=== PATIENT | female | born 1950 | race Caucasian/White ===

== ENCOUNTER 2017-12-29 14:48 | Emergency (ER) | payer BC ==
--- NOTE | 2017-12-29 15:51 | RAD REPORT ---
EXAM DESCRIPTION: US - Abdomen Exam Limited - 12/29/2017 3:46 pm CLINICAL HISTORY: Abdominal pain. COMPARISON: None. FINDINGS: The gallbladder wall is not thickened. A gallstone is not seen. The biliary tree is normal caliber. IMPRESSION: Unremarkable gallbladder ultrasound.
[2017-12-29 16:17] LABS: Absolute Lymphocytes (CBC) 0.8 K/uL (0.7-4.9); Absolute Monocytes 0.3 K/uL (0.1-1.3); Absolute Neutrophil 3.8 K/uL (1.8-8.0); Basophils % 0.4 % (0-1.3); Eosinophils % 0.4 % (0-4.4); Hematocrit 41.6 % (36.0-45.0); Lymphocytes % 15.6 % (15.3-44.8); MCH 30.2 pg (27.0-35.0); MCV 90.1 fL (80-100); MPV 10.9 fL (7.6-11.3); Monocytes % 6.8 % (3.3-12.3); RBC Red Blood Cell Count 4.61 M/uL (3.86-4.86)
[2017-12-29 16:32] LABS: Albumin 4.3 g/dL (3.4-5.0); Bilirubin Direct 0.2 mg/dL (0-0.2); Bilirubin Total 1.1 mg/dL (0.2-1.0); Potassium 4.9 mmol/L (3.5-5.1); Protein, Total 7.4 g/dL (6.4-8.2)
--- NOTE | 2017-12-29 17:01 | EDPHYS ---
Physician Documentation [facility] Name: Natalie Sales Age: 67 yrs Sex: Female : 1950 Arrival Date: 12/29/2017 Time: 14:51 Bed 28 Private MD: Lionel Bennett ED Physician Jama Hanson HPI: 12/29 15:46 This 67 yrs old Female presents to ER via Ambulatory with complaints of kb Abdominal Pain, Flank Pain. 15:46 The patient presents with abdominal pain in the upper abdomen. Onset: The kb symptoms/episode began/occurred this morning, at 09:00. The symptoms do not radiate. Associated signs and symptoms: none. The symptoms are described as achy. The symptoms are described as intermittent. Modifying factors: The symptoms are alleviated by nothing, the symptoms are aggravated by food. Severity of pain: At its worst the pain was moderate in the emergency department the pain has resolved. The patient has not experienced similar symptoms in the past. The patient has been recently seen by a physician:. Pt states she ate oatmeal this morning and started having pain to RUQ that moved to entire upper abd. States pain comes in waves, resolved at this time. Recently diagnosed with cancer in liver and small intestine. . Historical: - Allergies: 15:10 PENICILLINS; mg2 - Home Meds: 15:10 irbesartan oral oral [Active]; mg2 - PMHx: 15:10 Diverticulitis; Hypertension; mg2 - PSHx: 15:10 Hysterectomy; mg2 - Immunization history:: Flu vaccine is not up to date. - Social history:: Smoking status: Patient/guardian denies using tobacco, Patient/guardian denies using alcohol, street drugs, IV drugs. - Ebola Screening: : No symptoms or risks identified at this time. ROS: 15:46 Constitutional: Negative for fever, chills, and weight loss, ENT: Negative for injury, kb pain, and discharge, Neck: Negative for injury, pain, and swelling, Cardiovascular: Negative for chest pain, palpitations, and edema, Respiratory: Negative for shortness of breath, cough, wheezing, and pleuritic chest pain, Back: Negative for injury and pain, : Negative for injury, bleeding, discharge, and swelling, MS/Extremity: Negative for injury and deformity, Skin: Negative for injury, rash, and discoloration, Neuro: Negative for headache, weakness, numbness, tingling, and seizure. 15:46 Abdomen/GI: Positive for abdominal pain, Negative for nausea, vomiting, and diarrhea, constipation, abdominal cramps, abdominal distension, anorexia. Exam: 15:46 Constitutional: This is a well developed, well nourished patient who is awake, alert, kb and in no acute distress. Head/Face: Normocephalic, atraumatic. Chest/axilla: Normal chest wall appearance and motion. Nontender with no deformity. No lesions are appreciated. Cardiovascular: Regular rate and rhythm with a normal S1 and S2. No gallops, murmurs, or rubs. Normal PMI, no JVD. No pulse deficits. Respiratory: Lungs have equal breath sounds bilaterally, clear to auscultation and percussion. No rales, rhonchi or wheezes noted. No increased work of breathing, no retractions or nasal flaring. Abdomen/GI: Soft, non-tender, with normal bowel sounds. No distension or tympany. No guarding or rebound. No evidence of tenderness throughout. Skin: Warm, dry with normal turgor. Normal color with no rashes, no lesions, and no evidence of cellulitis. MS/ Extremity: Pulses equal, no cyanosis. Neurovascular intact. Full, normal range of motion. Neuro: Awake and alert, GCS 15, oriented to person, place, time, and situation. Cranial nerves II-XII grossly intact. Motor strength 5/5 in all extremities. Sensory grossly intact. Cerebellar exam normal. Normal gait. Vital Signs: 15:11 BP 154 / 76; Pulse 60; Resp 18; Temp 98.7(O); Pulse Ox 98% on R/A; Weight 72.57 kg; mg2 Height 5 ft. 8 in. (172.72 cm); Pain 8/10; 16:25 BP 141 / 69; Pulse 61; Resp 18; Pulse Ox 100% ; mg2 15:11 Body Mass Index 24.33 (72.57 kg, 172.72 cm) mg2 MDM: 15:03 Patient medically screened. kb 15:46 Data reviewed: vital signs, nurses notes. Data interpreted: Pulse oximetry: on room air kb is 98 %. Interpretation: normal. 16:58 Counseling: I had a detailed discussion with the patient and/or guardian regarding: the kb historical points, exam findings, and any diagnostic results supporting the discharge/admit diagnosis, lab results, radiology results, the need for outpatient follow up, a family practitioner, a gamemaster, to return to the emergency department if symptoms worsen or persist or if there are any questions or concerns that arise at home. 16:58 ED course: Offered CT scan to further investigate abdominal pain. Pt does not want to kb have CT done at this time. Educated to return for worsening symptoms. Verbal understanding received. Also educated on bland diet and follow up with GI.. 12/29 15:24 Order name: Basic Metabolic Panel 12/29 15:24 Order name: CBC with Diff kb 12/29 15:24 Order name: Hepatic Function 12/29 15:24 Order name: Lipase 12/29 15:25 Order name: Basic Metabolic Panel; Complete Time: 16:32 EDMS 12/29 15:25 Order name: CBC with Automated Diff; Complete Time: 16:18 EDMS 12/29 15:24 Order name: IV Saline Lock; Complete Time: 15:57 kb 12/29 15:24 Order name: Labs collected and sent; Complete Time: 15:57 kb 12/29 15:24 Order name: Urine Dipstick-Ancillary (obtain specimen); Complete Time: 16:10 kb 12/29 15:24 Order name: US Abdomen Limited; Complete Time: 15:55 kb 12/29 15:25 Order name: Liver (Hepatic) Function; Complete Time: 16:32 EDMS 12/29 15:25 Order name: Lipase; Complete Time: 16:32 EDMS Administered Medications: 17:15 Drug: ProTONIX 40 mg Route: IVP; Site: left antecubital; mg2 17:15 Follow up: Response: No adverse reaction; Medication administered at discharge. mg2 Disposition: 12/30 07:04 Co-signature as Attending Physician, Jama Hanson MD I agree with the assessment and chanelle plan of care. Disposition: 12/29/17 17:01 Discharged to Home. Impression: Upper abdominal pain, unspecified. - Condition is Stable. - Discharge Instructions: Gastroesophageal Reflux Disease, Adult, Abdominal Pain, Adult, [id number]. - Prescriptions for Bentyl 20 mg Oral Tablet - take 1 tablet by ORAL route every 6 hours As needed; 20 tablet. Zofran 4 mg Oral Tablet - take 1 tablet by ORAL route every 6 hours As needed; 20 tablet. - Medication Reconciliation Form, Thank You Letter, Antibiotic Education, Prescription Opioid Use form. - Follow up: Emergency Department; When: As needed; Reason: Worsening of condition. Follow up: Private Physician; When: 2 - 3 days; Reason: Recheck today's complaints, Continuance of care, Re-evaluation by your physician. Signatures: Dispatcher [employer] EDIA Esperanza Treviño, MAURICE-C PHOTOGRAPHIC REPRODUCTION TECHNICIAN-Jama Hansen MD MD cha Gardose, Michele, RN RN mg2 Corrections: (The following items were deleted from the chart) 12/29 17:23 17:01 12/29/2017 17:01 Discharged to Home. Impression: Upper abdominal pain, mg2 unspecified. Condition is Stable. Forms are Medication Reconciliation Form, Thank You Letter, Antibiotic Education, Prescription Opioid Use. Follow up: Emergency Department; When: As needed; Reason: Worsening of condition. Follow up: Private Physician; When: 2 - 3 days; Reason: Recheck today's complaints, Continuance of care, Re-evaluation by your physician. kb
--- NOTE | 2017-12-29 17:01 | ER ---
Nurse's Notes [facility] Name: Natalie Sales Age: 67 yrs Sex: Female : 1950 Arrival Date: 12/29/2017 Time: 14:51 Bed 28 Private MD: Lionel Bennett Diagnosis: Upper abdominal pain, unspecified Presentation: 12/29 15:07 Presenting complaint: Patient states: she has right upper quadrant pain radiating to mg2 the center after eating oatmeal this morning.she is also nauseous but denies vomiting. She had her first sandostatin injection last Thursday. She has Liver Ca. Transition of care: patient was not received from another setting of care. Onset of symptoms was December 29, 2017. Risk Assessment: Do you want to hurt yourself or someone else? Patient reports no desire to harm self or others. Initial Sepsis Screen: Does the patient meet any 2 criteria? No. Patient's initial sepsis screen is negative. Does the patient have a suspected source of infection? No. Patient's initial sepsis screen is negative. Care prior to arrival: None. 15:07 Method Of Arrival: Ambulatory mg2 15:07 Acuity: EFRAIN 3 mg2 Historical: - Allergies: 15:10 PENICILLINS; mg2 - Home Meds: 15:10 irbesartan oral oral [Active]; mg2 - PMHx: 15:10 Diverticulitis; Hypertension; mg2 - PSHx: 15:10 Hysterectomy; mg2 - Immunization history:: Flu vaccine is not up to date. - Social history:: Smoking status: Patient/guardian denies using tobacco, Patient/guardian denies using alcohol, street drugs, IV drugs. - Ebola Screening: : No symptoms or risks identified at this time. Screenin:58 Abuse screen: Denies threats or abuse. Denies injuries from another. Nutritional mg2 screening: No deficits noted. Tuberculosis screening: No symptoms or risk factors identified. Fall Risk IV access (20 points). Assessment: 16:10 General: Appears in no apparent distress. comfortable, Behavior is calm, cooperative. mg2 Pain: Complains of pain in RUQ Pain radiates to epigastrium Pain currently is 5 out of 10 on a pain scale. Quality of pain is described as aching, Pain began gradually, Is intermittent. Neuro: Level of Consciousness is awake, alert, obeys commands, Oriented to person, place, time. Cardiovascular: Capillary refill < 3 seconds Patient's skin is warm and dry. Respiratory: Airway is patent Respiratory effort is even, unlabored, Respiratory pattern is regular, symmetrical. GI: Reports epigastric pain. : No signs and/or symptoms were reported regarding the genitourinary system. : Reports history of UTI. EENT: No signs and/or symptoms were reported regarding the EENT system. Derm:. Musculoskeletal: Circulation, motion, and sensation intact. Vital Signs: 15:11 BP 154 / 76; Pulse 60; Resp 18; Temp 98.7(O); Pulse Ox 98% on R/A; Weight 72.57 kg; mg2 Height 5 ft. 8 in. (172.72 cm); Pain 8/10; 16:25 BP 141 / 69; Pulse 61; Resp 18; Pulse Ox 100% ; mg2 15:11 Body Mass Index 24.33 (72.57 kg, 172.72 cm) mg2 ED Course: 14:51 Patient arrived in ED. rg4 14:51 Lionel Bennett MD is Private Physician. rg4 15:03 Esperanza Treviño [facility]-C [facility]. kb 15:03 Jama Hanson MD is Attending Physician. kb 15:07 Abebe Girard, ADRIEN is Primary Nurse. mg2 15:10 Triage completed. mg2 15:11 Arm band placed on. mg2 15:46 US Abdomen Limited In Process Unspecified. EDMS 15:57 No provider procedures requiring assistance completed. Inserted saline lock: 20 gauge mg2 in left antecubital area, using aseptic technique. Blood collected. 16:12 Patient has correct armband on for positive identification. Bed in low position. Call mg2 light in reach. Side rails up X 1. Pulse ox on. NIBP on. Door closed. Warm blanket given. 17:23 IV discontinued, intact, bleeding controlled, No redness/swelling at site. Pressure mg2 dressing applied. Administered Medications: 17:15 Drug: ProTONIX 40 mg Route: IVP; Site: left antecubital; mg2 17:15 Follow up: Response: No adverse reaction; Medication administered at discharge. mg2 Outcome: 17:01 Discharge ordered by . kb 17:23 Discharged to home ambulatory, with family. mg2 17:23 Condition: good 17:23 Discharge instructions given to patient, family, Instructed on discharge instructions, follow up and referral plans. medication usage, Demonstrated understanding of instructions, follow-up care, medications, Prescriptions given X 2. 17:23 Patient left the ED. mg2 Signatures: Dispatcher [employer] EDEsperanza Hanson, DOTTIE RICHARDS-Esther Sims rg4 Abebe Girard, RN RN mg2
[2017-12-29] MEDS ORDERED: PANTOPRAZOLE 40 MG INJ ONE (17:07)
[2017-12-29 17:33] VITALS: TEMP 98.7
[2017-12-29 17:34] VITALS: BP 141/69; O2SAT 100
== END 2017-12-29 17:23 | disposition home or self-care (01) ==
LOC: ER 14:48
DX: R10.11 Right upper quadrant pain (principal); I10 Essential (primary) hypertension; Z88.0 Allergy status to penicillin; Z85.05 Personal history of malignant neoplasm of liver; Z85.068 Personal history of other malignant neoplasm of small intestine
CPT/HCPCS: 36415; 76705; 80048; 80076; 83690; 85025; 96374; 99284; C9113

== ENCOUNTER 2018-10-20 21:53 | Emergency (ER) | payer BC ==
[2018-10-20 22:58] LABS: Urine Blood 3+ (NEG); Urine Glucose NEGATIVE (NEG); Urine Protein 1+ (NEG); Urine pH 6.5 (5.0-7.0)
[2018-10-20 22:59] LABS: Urine Bacteria <20 /HPF (<20); Urine Culture Reflex Order REFLEXED
--- NOTE | 2018-10-20 23:08 | EDPHYS ---
Physician Documentation [facility] Name: Natalie Sales Age: 68 yrs Sex: Female : 1950 Arrival Date: 10/20/2018 Time: 21:56 Bed 7 Private MD: Lionel Bennett ED Physician Andrea Hinojosa HPI: 10/20 23:31 This 68 yrs old Female presents to ER via Ambulatory with complaints of kb Urinary Problem. 23:31 The patient presents with urinary symptoms, dysuria, hematuria. Onset: The kb symptoms/episode began/occurred today. Modifying factors: The symptoms are alleviated by nothing, the symptoms are aggravated by urinating. Associated signs and symptoms: Pertinent positives: dysuria, hematuria. Severity of symptoms: At their worst the symptoms were moderate, in the emergency department the symptoms have improved, moderately. The patient has experienced similar episodes in the past, multiple times. The patient has not recently seen a physician. Pt reports she started having dysuria and hematuria this morning. STates she has frequent UTIs and it feels the same as it normally does when she has one. Reports bladder spasms . Historical: - Allergies: 22:25 PENICILLINS; lp1 - Home Meds: 22:25 Sandostatin injection injection [Active]; lp1 - PMHx: 22:25 Diverticulitis; Hypertension; Frequent UTI's; Neuroendocrine cancer; lp1 - PSHx: 22:25 Hysterectomy; lp1 - Immunization history:: Adult Immunizations up to date. - Social history:: Smoking status: Patient/guardian denies using tobacco. - Ebola Screening: : No symptoms or risks identified at this time. ROS: 23:30 Constitutional: Negative for fever, chills, and weight loss, Cardiovascular: Negative kb for chest pain, palpitations, and edema, Respiratory: Negative for shortness of breath, cough, wheezing, and pleuritic chest pain, Abdomen/GI: Negative for abdominal pain, nausea, vomiting, diarrhea, and constipation, MS/Extremity: Negative for injury and deformity, Skin: Negative for injury, rash, and discoloration, Neuro: Negative for headache, weakness, numbness, tingling, and seizure. 23:30 : Positive for urinary symptoms, hematuria, burning with urination. Exam: 23:30 Constitutional: This is a well developed, well nourished patient who is awake, alert, kb and in no acute distress. Head/Face: Normocephalic, atraumatic. Chest/axilla: Normal chest wall appearance and motion. Nontender with no deformity. No lesions are appreciated. Cardiovascular: Regular rate and rhythm with a normal S1 and S2. No gallops, murmurs, or rubs. Normal PMI, no JVD. No pulse deficits. Respiratory: Lungs have equal breath sounds bilaterally, clear to auscultation and percussion. No rales, rhonchi or wheezes noted. No increased work of breathing, no retractions or nasal flaring. Back: No spinal tenderness. No costovertebral tenderness. Full range of motion. Skin: Warm, dry with normal turgor. Normal color with no rashes, no lesions, and no evidence of cellulitis. MS/ Extremity: Pulses equal, no cyanosis. Neurovascular intact. Full, normal range of motion. Neuro: Awake and alert, GCS 15, oriented to person, place, time, and situation. Cranial nerves II-XII grossly intact. Motor strength 5/5 in all extremities. Sensory grossly intact. Cerebellar exam normal. Normal gait. 23:30 Abdomen/GI: Inspection: abdomen appears normal, Bowel sounds: normal, in all quadrants, Palpation: soft, in all quadrants, mild abdominal tenderness, in the suprapubic area, right lower quadrant and left lower quadrant. Vital Signs: 22:19 BP 181 / 74; Pulse 58; Resp 18; Temp 98.2(O); Pulse Ox 100% on R/A; Weight 65.77 kg; lp1 Height 5 ft. 7 in. (170.18 cm); Pain 5/10; 22:19 Body Mass Index 22.71 (65.77 kg, 170.18 cm) lp1 MDM: 22:15 Patient medically screened. kb 23:21 Data reviewed: vital signs, nurses notes. Data interpreted: Pulse oximetry: on room air kb is 100 %. Interpretation: normal. Counseling: I had a detailed discussion with the patient and/or guardian regarding: the historical points, exam findings, and any diagnostic results supporting the discharge/admit diagnosis, lab results, the need for outpatient follow up, a family practitioner, to return to the emergency department if symptoms worsen or persist or if there are any questions or concerns that arise at home. 06/05 22:15 Order name: Urine Microscopic Only; Complete Time: 23:05 kb 10/20 22:30 Order name: Urine Dipstick--Ancillary (enter results); Complete Time: 23:05 mw2 10/20 22:15 Order name: Urine Dipstick-Ancillary (obtain specimen); Complete Time: 22:32 kb 10/20 23:01 Order name: Urine Culture EDMS Administered Medications: 23:35 Drug: Bactrim (160 mg-800 mg (DS) 1 tablet Route: PO; lp1 23:35 Follow up: Response: Medication administered at discharge. lp1 23:35 Drug: Pyridium 100 mg Route: PO; lp1 23:35 Follow up: Response: Medication administered at discharge. lp1 Disposition: 10/21 02:08 Co-signature as Attending Physician, Andrea Hinojosa MD I agree with the assessment and tw4 plan of care. Disposition: 10/20/18 23:07 Discharged to Home. Impression: Urinary tract infection, site not specified. - Condition is Stable. - Discharge Instructions: Urinary Tract Infection, Adult, [id number]. - Prescriptions for Pyridium 200 mg Oral Tablet - take 1 tablet by ORAL route every 8 hours for 3 days; 9 tablet. Bactrim DS 800- 160 mg Oral Tablet - take 1 tablet by ORAL route every 12 hours for 7 days; 14 tablet. - Medication Reconciliation Form, Thank You Letter, Antibiotic Education, Prescription Opioid Use form. Signatures: Dispatcher [employer] EDMA Esperanza Treviño, FILM READER-C FILM READER-Ckb Tiffany Simmons RN RN lp1 Andrea Hinojosa MD MD tw4 Corrections: (The following items were deleted from the chart) 10/20 23:51 23:07 10/20/2018 23:07 Discharged to Home. Impression: Urinary tract infection, site lp1 not specified. Condition is Stable. Forms are Medication Reconciliation Form, Thank You Letter, Antibiotic Education, Prescription Opioid Use. Follow up: Emergency Department; When: As needed; Reason: Worsening of condition. Follow up: Private Physician; When: 2 - 3 days; Reason: Recheck today's complaints, Continuance of care, Re-evaluation by your physician. kb
--- NOTE | 2018-10-20 23:08 | ER ---
Nurse's Notes [facility] Name: Natalie Sales Age: 68 yrs Sex: Female : 1950 Arrival Date: 10/20/2018 Time: 21:56 Bed 7 Private MD: Lionel Bennett Diagnosis: Urinary tract infection, site not specified Presentation: 10/20 22:18 Presenting complaint: Patient states: Blood in urine that began today, complaint of lp1 burning with urination, frequent voiding, pelvic pain; Hx of frequent UTI's. Transition of care: patient was not received from another setting of care. Onset of symptoms was October 20, 2018. Risk Assessment: Do you want to hurt yourself or someone else? Patient reports no desire to harm self or others. Initial Sepsis Screen: Does the patient meet any 2 criteria? No. Patient's initial sepsis screen is negative. Does the patient have a suspected source of infection? No. Patient's initial sepsis screen is negative. Care prior to arrival: None. 22:18 Method Of Arrival: Ambulatory lp1 22:18 Acuity: EFRAIN 4 lp1 Historical: - Allergies: 22:25 PENICILLINS; lp1 - Home Meds: 22:25 Sandostatin injection injection [Active]; lp1 - PMHx: 22:25 Diverticulitis; Hypertension; Frequent UTI's; Neuroendocrine cancer; lp1 - PSHx: 22:25 Hysterectomy; lp1 - Immunization history:: Adult Immunizations up to date. - Social history:: Smoking status: Patient/guardian denies using tobacco. - Ebola Screening: : No symptoms or risks identified at this time. Screenin:25 Abuse screen: Denies threats or abuse. Denies injuries from another. Nutritional lp1 screening: No deficits noted. Tuberculosis screening: No symptoms or risk factors identified. Fall Risk None identified. Assessment: 22:30 General: Appears in no apparent distress. Behavior is calm, cooperative, appropriate lp1 for age. Pain: Complains of pain in suprapubic area Pain currently is 5 out of 10 on a pain scale. Neuro: No deficits noted. Cardiovascular: Patient's skin is warm and dry. Respiratory: No deficits noted. GI: No deficits noted. : Reports burning with urination, cramping, discharge, bloody, urinary frequency. EENT: No deficits noted. Derm: Skin is pink, warm \T\ dry. Musculoskeletal: No deficits noted. Vital Signs: 22:19 BP 181 / 74; Pulse 58; Resp 18; Temp 98.2(O); Pulse Ox 100% on R/A; Weight 65.77 kg; lp1 Height 5 ft. 7 in. (170.18 cm); Pain 5/10; 22:19 Body Mass Index 22.71 (65.77 kg, 170.18 cm) lp1 ED Course: 21:56 Patient arrived in ED. mr 21:57 Lionel Bennett MD is Private Physician. mr 22:06 Shanda Mcpherson is Primary Nurse. cc3 22:15 Esperanza Treviño FNP-C is [facility]. kb 22:15 Andrea Hinojosa MD is Attending Physician. kb 22:19 Triage completed. lp1 22:23 Arm band placed on left wrist. lp1 22:25 Patient has correct armband on for positive identification. lp1 22:26 Tiffany Simmons RN is Primary Nurse. lp1 23:00 No provider procedures requiring assistance completed. Patient did not have IV access lp1 during this emergency room visit. Administered Medications: 23:35 Drug: Bactrim (160 mg-800 mg (DS) 1 tablet Route: PO; lp1 23:35 Follow up: Response: Medication administered at discharge. lp1 23:35 Drug: Pyridium 100 mg Route: PO; lp1 23:35 Follow up: Response: Medication administered at discharge. lp1 Outcome: 23:07 Discharge ordered by MD. kb 23:35 Discharged to home ambulatory, with significant other. lp1 23:35 Condition: good 23:35 Discharge instructions given to patient, Instructed on discharge instructions, follow up and referral plans. medication usage, Demonstrated understanding of instructions, follow-up care, medications, Prescriptions given X 2. 23:35 Patient left the ED. lp1 Signatures: Esperanza Treviño FNP-C DRAG CAR RACER-Aruna Gonzales mr Tiffany Simmons, RN RN lp1 Shanda Mcpherson cc3 Corrections: (The following items were deleted from the chart) 22:22 22:19 BP 181 / 74; lp1 lp1 22:27 22:19 BP 181 / 74; Pulse 58bpm; Resp 18bpm; Pulse Ox 100% RA; Temp 98.2F Oral; Pain lp1 5/10; lp1 23:51 23:51 Patient left the ED. lp1 lp1
[2018-10-20] MEDS ORDERED: SMZ./TMP. 800/160 MG TABLET ONE (23:46)
[2018-10-20] MEDS ORDERED: PHENAZOPYRIDINE 100MG TAB PO ONE (23:46)
[2018-10-21 02:23] VITALS: BP 181/74; TEMP 98.2; O2SAT 100
== END 2018-10-20 23:51 | disposition home or self-care (01) ==
LOC: ER 21:53
DX: N39.0 Urinary tract infection, site not specified (principal); I10 Essential (primary) hypertension; Z88.0 Allergy status to penicillin; Z85.89 Personal history of malignant neoplasm of other organs and systems
CPT/HCPCS: 81003; 81015; 87086; 87088; 99283